=== PATIENT | female | born 1975 ===

== ENCOUNTER 2016-09-27 10:01 | Emergency (ER) | payer OTHER ==
[2016-09-27 10:10] VITALS: BMI 29.9
[2016-09-27 10:20] VITALS: BP 113/77; RESP 18; TEMP 97.9; O2SAT 98
--- NOTE | 2016-09-27 11:21 | C.PDOC ---
History Of Present Illness 41 y/o female presents to ED with complaint of right sided facial swelling, redness, and itchiness for 2 days. Denies fever, chills, ear pain, or sore throat. Denies visual changes. Time Seen by Provider: 09/27/16 10:46 Chief Complaint (Nursing): Abnormal Skin Integrity History Per: Patient History/Exam Limitations: no limitations Onset/Duration Of Symptoms: Days Current Symptoms Are (Timing): Still Present Location Of Injury: Right: Face Quality Of Symptoms: Itching, Swollen Recent travel outside of the [place]: No Past Medical History Reviewed: Historical Data, Nursing Documentation, Vital Signs Vital Signs: Last Vital Signs Temp 97.9 F 09/27/16 10:19 Pulse 79 09/27/16 11:48 Resp 18 09/27/16 11:48 BP 113/77 09/27/16 10:19 Pulse Ox 98 09/27/16 15:25 - Medical History PMH: No Chronic Diseases - [facility] Procedures LOW CERVICAL (01/14/15) Family History: States: Unknown Family Hx - Social History Hx Tobacco Use: No Hx Alcohol Use: No Hx Substance Use: No Review Of Systems Except As Marked, All Systems Reviewed And Found Negative. Constitutional: Negative for: Fever, Chills Respiratory: Negative for: Cough Skin: Positive for: Other (facial swelling, redness, itchiness). Negative for: Rash Neurological: Negative for: Weakness, Numbness, Headache, Dizziness Physical Exam - Physical Exam Appears: Non-toxic, No Acute Distress Skin: Warm, Dry Head: Atraumatic, Normacephalic, Other (redness and swelling to right cheek, right infraorbital area, and right sided mandible ) Eye(s): bilateral: Normal Inspection, PERRL, EOMI Ear(s): Bilateral: Normal Nose: Normal Oral Mucosa: Moist Throat: Normal, No Erythema, No Exudate Neck: Supple Chest: Symmetrical Cardiovascular: Rhythm Regular, No Murmur Respiratory: Normal Breath Sounds, No Rales, No Wheezing Gastrointestinal/Abdominal: Soft, No Tenderness Back: Normal Inspection Extremity: Normal ROM, Capillary Refill (< 2 sec. ) Neurological/Psych: Oriented x3, Normal Speech, Normal Cognition ED Course And Treatment O2 Sat by Pulse Oximetry: 98 (RA) Pulse Ox Interpretation: Normal Progress Note: Treated with Benadryl and doxycycline. Patient reports improvement. Advised to continue taking medications and to follow up with clinic. Disposition Counseled Patient/Family Regarding: Diagnosis, Need For Followup - Disposition Referrals: Clinic,Med Surg [Primary Care Provider] - Disposition: HOME/ ROUTINE Disposition Time: 11:21 Condition: GOOD Prescriptions: DiphenhydrAMINE [Benadryl] 1 cap PO Q6H PRN #30 cap PRN Reason: .itching Doxycycline Monohydrate 1 tab PO BID #14 tablet Instructions: Cellulitis (ED), Periorbital Cellulitis in Adults (ED) Forms: Work Excuse Print Language: CYPRIOT - Clinical Impression Clinical Impression: Cellulitis - Scribe Statement The provider has reviewed the documentation as recorded by the Julianneibadelina Bell All medical record entries made by the Joseph were at my direction and personally dictated by me. I have reviewed the chart and agree that the record accurately reflects my personal performance of the history, physical exam, medical decision making, and the department course for this patient. I have also personally directed, reviewed, and agree with the discharge instructions and disposition.
[2016-09-27 11:48] VITALS: PULSE 79
== END 2016-09-27 11:48 | disposition home or self-care (01) ==
LOC: SUPCPDRO 10:01 → C.ER 10:01
DX: L03.211 Cellulitis of face (principal)